=== PATIENT | female | born 1965 | race Caucasian/White ===

== ENCOUNTER → 2024-08-12 11:04 | Outpatient (REF) | payer OTHER, SELFPAY ==
[2024-08-12 16:21] LABS: Mumps Virus IgG Negative; Rubeola (Measles) IgG Positive; Varicella Zoster IgG (VZV) Positive
[2024-08-12 20:02] LABS: Rubella Positive
[2024-08-14 09:10] LABS: Quantiferon Mitogen minus NIL 9.97 IU/mL; Quantiferon NIL 0.03 IU/mL; Quantiferon TB Gold Plus Negative (Negative)
== END ==
LOC: REG 11:04
PROVIDERS: ATTENDING PHYSICIAN Nurse Practitioner
DX: Z23 Encounter for immunization (principal)
CPT/HCPCS: 36415; 86480; 86735; 86762; 86765; 86787